=== PATIENT | female | born 1935 | race Caucasian/White ===

== ENCOUNTER 2017-07-29 09:19 | Outpatient (CLI) | payer OTHER ==
[~2017-07-29 09:19] MED LIST: ANTIVERT25 M1 PO; BACLOFEN10 MG PO; FOSAMAX5 MG PO; LIPOFLAVOVIT CA1 TAB PO; METOPROLOL SUCC25 MG
== END 2017-07-29 09:26 | disposition home or self-care (01) ==
LOC: MRI 09:19
DX: R93.8 Abnormal findings on diagnostic imaging of other specified body structures (principal); R10.2 Pelvic and perineal pain
CPT/HCPCS: 72196; A9579

== ENCOUNTER 2017-07-29 09:28 | Outpatient (CLI) | payer OTHER | END 2017-07-29 11:15 | disposition home or self-care (01) | LOC: MAMO-SONO 09:28 | DX: Z12.31 Encounter for screening mammogram for malignant neoplasm of breast (principal); Z87.898 Personal history of other specified conditions; N60.11 Diffuse cystic mastopathy of right breast; N60.12 Diffuse cystic mastopathy of left breast ==

== ENCOUNTER → 2017-07-29 11:59 | Outpatient (CLI) | payer OTHER | END | disposition home or self-care (01) | LOC: LAB 11:59 | DX: D64.89 Other specified anemias (principal); E78.2 Mixed hyperlipidemia; E03.8 Other specified hypothyroidism; N39.0 Urinary tract infection, site not specified; E55.9 Vitamin D deficiency, unspecified; Z12.11 Encounter for screening for malignant neoplasm of colon; N95.0 Postmenopausal bleeding ==

== ENCOUNTER 2017-08-03 15:03 | Outpatient (CLI) | payer OTHER | END 2017-08-03 15:09 | disposition home or self-care (01) | LOC: LAB 15:03 | DX: D64.89 Other specified anemias (principal); E78.00 Pure hypercholesterolemia, unspecified; E03.8 Other specified hypothyroidism; N39.0 Urinary tract infection, site not specified; E55.9 Vitamin D deficiency, unspecified; Z12.11 Encounter for screening for malignant neoplasm of colon ==